=== PATIENT | male | born 1965 | race Caucasian/White ===

== ENCOUNTER 2019-02-04 18:32 | Emergency (ER) | payer OTHER ==
[~2019-02-04] VITALS: Ht 177.8 cm; Wt 85.7 kg
[2019-02-04 18:50] VITALS: BP 135/80
[2019-02-04] MEDS ORDERED: IV NS 0.9% 1,000 ML BAG IV ONE (20:00)
[2019-02-04 20:12] LABS: BASOPHILS # (AUTO) 0.1 /CMM (0.0-0.2); BASOPHILS % (AUTO) 0.8 % (0.0-2.0); EOSINOPHILS % (AUTO) 1.1 % (0.0-6.0); HEMATOCRIT 42 % (39-51); HEMOGLOBIN 14.5 g/dL (13.5-17.5); LYMPHOCYTES # (AUTO) 3.2 /CMM (0.8-4.8); LYMPHOCYTES % (AUTO) 39.1 % (20.0-44.0); MEAN CORPUSCULAR HGB CONC 35 g/dl (31.0-36.0); MEAN CORPUSCULAR VOLUME 101 fL (80-96); MONOCYTES # (AUTO) 0.7 /CMM (0.1-1.30); NEUTROPHILS # (AUTO) 4.2 /CMM (1.8-8.9); PLATELET COUNT (AUTO) 134 /CMM (150-450); RED BLOOD CELL COUNT(AUTO) 4.12 MIL/uL (4.5-6.0); WHITE BLOOD COUNT (AUTO) 8.3 K/uL (4.3-11.0)
[2019-02-04 20:18] LABS: CALCIUM, SERUM 8.3 mg/dL (8.5-10.1); CREATININE 1.1 mg/dL (0.6-1.3); POTASSIUM 3.3 mmol/L (3.5-5.1)
[2019-02-04 20:24] LABS: BILIRUBIN,DIRECT 0.3 mg/dL (0.0-0.2); BILIRUBIN,TOTAL 0.6 mg/dL (0.2-1.0); TOTAL PROTEIN, SERUM 6.6 g/dL (6.4-8.2)
[2019-02-04] MEDS ORDERED: LEVETIRACETAM (500MG) 500 MG in IV NS 0.9% 100 ML IV SCH (20:30)
--- NOTE | 2019-02-04 20:42 | NUR ---
SPOKE TO FRANK AT [facility]. HE INFORMED ME THAT PT HAS AN INTAKE BED READY FOR HIM. CALL REPORT TO [phone]. WILL SET UP TRANSFER
--- NOTE | 2019-02-04 20:45 | NUR ---
CALLED [facility] FOR BLS TRANSPORT. ETA 30 MIN TRIP# [phone]
--- NOTE | 2019-02-04 21:20 | NUR ---
IRMA, KANDI . SILVIA
--- NOTE | 2019-02-04 21:35 | NUR ---
REPORT GIVEN TO TASNEEM , RM 4026
--- NOTE | 2019-02-04 21:41 | NUR ---
REPORT GIVENTO truck unloader. PT WAS PICKED UP IN STABLE CONDITION. REPORT GIVEN TO truck unloader.
== END 2019-02-04 21:54 | disposition short-term general hospital (02) ==
LOC: ER 18:34
DX: S00.83XA Contusion of other part of head, initial encounter (principal); F10.229 Alcohol dependence with intoxication, unspecified; I60.9 Nontraumatic subarachnoid hemorrhage, unspecified; I10 Essential (primary) hypertension; R51 Headache; Y90.9 Presence of alcohol in blood, level not specified; W10.8XXA Fall (on) (from) other stairs and steps, initial encounter; Y93.89 Activity, other specified; Y92.002 Bathroom of unspecified non-institutional (private) residence as the place of occurrence of the external cause; Y99.8 Other external cause status
CPT/HCPCS: 36415; 70450; 71045; 80048; 80076; 83690; 85025; 85730; 86850; 96365; 99291; J1953; J7030 ×2

== ENCOUNTER 2019-02-17 13:23 | Emergency (ER) | payer OTHER ==
[~2019-02-17] VITALS: Ht 177.8 cm; Wt 81.6 kg
--- NOTE | 2019-02-17 13:26 | NUR ---
CHIKIS FOR ALTERED MENTAL STATUS, WAS SEEN BY NEIGHBORS AT HIS HOME [place], ADMITS TO ETOH THIS MORNING, ALSO C/O BACK PAIN. TO ER BED 11, HOOKED TO MONITOR, CHANGED TO GOWN, PROVIDED W WARM BLANKET, AWAITING MD SANTANA.
--- NOTE | 2019-02-17 13:35 | NUR ---
DR WREN AT BEDSIDE
[2019-02-17 13:53] LABS: BASOPHILS # (AUTO) 0.1 /CMM (0.0-0.2); EOSINOPHILS % (AUTO) 0.6 % (0.0-6.0); HEMATOCRIT 44 % (39-51); HEMOGLOBIN 15.4 g/dL (13.5-17.5); LYMPHOCYTES # (AUTO) 3.5 /CMM (0.8-4.8); LYMPHOCYTES % (AUTO) 34.6 % (20.0-44.0); MEAN CORPUSCULAR HGB CONC 35 g/dl (31.0-36.0); MEAN CORPUSCULAR VOLUME 99 fL (80-96); MONOCYTES # (AUTO) 0.8 /CMM (0.1-1.30); NEUTROPHILS # (AUTO) 5.6 /CMM (1.8-8.9); NEUTROPHILS % (AUTO) 55.8 % (43.0-81.0); PLATELET COUNT (AUTO) 195 /CMM (150-450); RED BLOOD CELL COUNT(AUTO) 4.42 MIL/uL (4.5-6.0)
[2019-02-17 14:00] LABS: CALCIUM, SERUM 8.9 mg/dL (8.5-10.1); CREATININE 1.4 mg/dL (0.6-1.3); POTASSIUM 3.9 mmol/L (3.5-5.1)
[2019-02-17] MEDS ORDERED: ACETAMINOPHEN ES 500 MG TABLET ONE (15:42)
[2019-02-17] MEDS ORDERED: ACETAMINOPHEN ES 500 MG TABLET PO ONE (16:00)
--- NOTE | 2019-02-17 16:08 | NUR ---
IV removed. Catheter intact and site benign. Pressure and 4x4 applied to site. No bleeding noted.Patient discharged to home with family in stable condition. Written and verbal after care instructions given. Patient verbalizes understanding of instruction. Pt able to ambulate in steady gait using cane.
[2019-02-17 16:34] VITALS: BP 132/82
== END 2019-02-17 16:08 | disposition home or self-care (01) ==
LOC: ER 13:34
DX: F10.20 Alcohol dependence, uncomplicated (principal); R47.81 Slurred speech; R40.4 Transient alteration of awareness; I10 Essential (primary) hypertension; Y90.6 Blood alcohol level of 120-199 mg/100 ml; Z60.2 Problems related to living alone; W10.8XXA Fall (on) (from) other stairs and steps, initial encounter; Y93.89 Activity, other specified; Y92.89 Other specified places as the place of occurrence of the external cause; Y99.8 Other external cause status
CPT/HCPCS: 36415; 70450-TC; 80048-TC; 85025-TC; 85730-TC; G0480

== ENCOUNTER 2021-08-05 09:36 | Emergency (ER) | payer OTHER ==
[~2021-08-05] VITALS: Ht 175.3 cm; Wt 78.5 kg
--- NOTE | 2021-08-05 10:01 | NUR ---
[id number] HOM[facility]ESS S[facility]IOR LIVING FOR BILAT UPPER/LOWER EXTREMITY INVOLUNTARY TWITCHING AT NIGHT X2DAYS, RAN OUT OF MEDICATIONS-NEURONTIN, AAOX3, BREATHING EVEN AND NON LABORED, AWAITING MD SANTANA
--- NOTE | 2021-08-05 10:06 | NUR ---
DR GASCA AT BEDSIDE FOR EVAL
--- NOTE | 2021-08-05 10:11 | NUR ---
Adelaida barry in EDM - 08/05/21 at 1121 by MAUREEN [id number] HOMELESS [facility] FOR BILAT UPPER/LOWER EXTREMITY INVOLUNTARY TWITCHING AT NIGHT X2DAYS, RAN OUT OF MEDICATIONS-NEURONTIN, AAOX3, BREATHING EVEN AND NON LABORED, AWAITING MD SANTANA
[2021-08-05] MEDS ORDERED: GABAPENTIN 300 MG CAPSULE ONE (10:16)
[2021-08-05] MEDS ORDERED: GABAPENTIN 100 MG CAPSULE PO ONE (10:30)
[2021-08-05 10:38] LABS: HEMOGLOBIN 15.6 g/dL (13.5-17.5); MEAN CORPUSCULAR HGB CONC 34 g/dl (31.0-36.0); PLATELET COUNT (AUTO) 119 K/uL (150-450)
[2021-08-05 10:40] LABS: CALCIUM, SERUM 8.7 mg/dL (8.5-10.1); CREATININE 1.3 mg/dL (0.6-1.3); POTASSIUM 4.2 mmol/L (3.5-5.1)
[2021-08-05 10:44] LABS: BASOPHILS # (AUTO) 0.1 K/uL (0.0-0.2); BASOPHILS % (AUTO) 1.1 % (0.0-2.0); HEMATOCRIT 46 % (39-51); LYMPHOCYTES # (AUTO) 1.9 K/uL (0.8-4.8); LYMPHOCYTES % (AUTO) 26.1 % (20.0-44.0); MEAN CORPUSCULAR VOLUME 93 fL (80-96); MONOCYTES # (AUTO) 0.5 K/uL (0.1-1.30); MONOCYTES % (AUTO) 6.9 % (2.0-12.0); NEUTROPHILS # (AUTO) 4.8 K/uL (1.8-8.9); NEUTROPHILS % (AUTO) 64.9 % (43.0-81.0); RED BLOOD CELL COUNT(AUTO) 4.93 MIL/uL (4.5-6.0); WHITE BLOOD COUNT (AUTO) 7.4 K/uL (4.3-11.0)
[2021-08-05] MEDS ORDERED: GABA300C PO (11:32)
--- NOTE | 2021-08-05 12:09 | NUR ---
Patient discharged to home in stable condition. Written and verbal after care instructions given. Patient verbalizes understanding of instruction.
[2021-08-05 12:10] VITALS: BP 134/72
== END 2021-08-05 12:11 | disposition home or self-care (01) ==
LOC: ER 09:44
DX: R25.8 Other abnormal involuntary movements (principal); E11.40 Type 2 diabetes mellitus with diabetic neuropathy, unspecified; E11.65 Type 2 diabetes mellitus with hyperglycemia; I10 Essential (primary) hypertension; Z79.891 Long term (current) use of opiate analgesic; Z60.2 Problems related to living alone
CPT/HCPCS: 36415; 80048-TC; 85025-TC

== ENCOUNTER 2021-09-23 13:06 | Emergency (ER) | payer OTHER ==
[~2021-09-23] VITALS: Ht 175.3 cm; Wt 78.5 kg
[~2021-09-23 13:06] MED LIST: GABA300C PO
--- NOTE | 2021-09-23 13:18 | NUR ---
BIB [facility] FOR WORSENING RIGHT FOOT PAIN,S/P R BIG TOE AMPUTATION 2 DAYS AGO. TO ER BED 1, HOOKED TO MONITOR, CHANGED TO HOSP GOWN, WARM BLANKET PROVIDED. PATIENT AAO x 4, RESPIRATIONS EVEN AND UNLABORED. AWAITING MD SANTANA
--- NOTE | 2021-09-23 14:23 | NUR ---
GUS SANTILLAN AT BEDSIDE
[2021-09-23] MEDS ORDERED: HYDROCODONE/APAP 5/325MG TABLET ONE (14:30)
[2021-09-23] MEDS ORDERED: HYDROCODONE/APAP 5/325MG TABLET PO ONE (14:30)
[2021-09-23] MEDS ORDERED: CEPH500C2 PO (14:41)
[2021-09-23 15:10] LABS: CREATININE 1.4 mg/dL (0.6-1.3); POTASSIUM 4.4 mmol/L (3.5-5.1)
[2021-09-23 15:16] LABS: BASOPHILS # (AUTO) 0.1 K/uL (0.0-0.2); BASOPHILS % (AUTO) 0.5 % (0.0-2.0); HEMATOCRIT 45 % (39-51); LYMPHOCYTES # (AUTO) 4.7 K/uL (0.8-4.8); MEAN CORPUSCULAR HGB CONC 33 g/dl (31.0-36.0); MEAN CORPUSCULAR VOLUME 90 fL (80-96); MONOCYTES # (AUTO) 0.7 K/uL (0.1-1.30); MONOCYTES % (AUTO) 5.6 % (2.0-12.0); NEUTROPHILS # (AUTO) 6.5 K/uL (1.8-8.9); NEUTROPHILS % (AUTO) 53.9 % (43.0-81.0); PLATELET COUNT (AUTO) 228 K/uL (150-450); RED BLOOD CELL COUNT(AUTO) 5.01 MIL/uL (4.5-6.0); WHITE BLOOD COUNT (AUTO) 12.1 K/uL (4.3-11.0)
--- NOTE | 2021-09-23 16:01 | NUR ---
Patient states he is homeless and requested a tap card.
--- NOTE | 2021-09-23 16:07 | NUR ---
Patient given written and verbal discharge instructions. Patient verbalizes understanding of instructions. Patient is ambulatory with steady gait. Refuses offer of prison placement. Patient given list of available shelters in surrounding area. Patient in proper clothing upon discharged, nameband removed. All belongings with the patient.
--- NOTE | 2021-09-23 16:08 | NUR ---
Tap card provided
[2021-09-23 16:11] VITALS: BP 129/66
== END 2021-09-23 16:11 | disposition home or self-care (01) ==
LOC: ER 13:08
DX: G89.18 Other acute postprocedural pain (principal); M79.671 Pain in right foot; I10 Essential (primary) hypertension; E11.40 Type 2 diabetes mellitus with diabetic neuropathy, unspecified; Z60.2 Problems related to living alone; Z79.899 Other long term (current) drug therapy
CPT/HCPCS: 36415; 80048; 85025; 85730; 99283; A6403

== ENCOUNTER 2021-11-11 20:56 | Emergency (ER) | payer OTHER ==
[~2021-11-11] VITALS: Ht 167.6 cm; Wt 65.8 kg
[~2021-11-11 20:56] MED LIST changes: +CEPH500C2 PO
--- NOTE | 2021-11-11 21:19 | NUR ---
CHIKIS FROM THE STREET. TO ER BED 15. AAOX3 BUT ADMITS TO DRINKING ALCOHOL. BROUGHT IN FEELING DEPRESSED AND RIGHT BIG TOE PAIN. DENIES ANY SUICIDAL NOR HOMICIDAL IDEATION. AWAITING MD FOR EVAL.
--- NOTE | 2021-11-11 21:40 | NUR ---
URINE COLLECTED AND SENT
--- NOTE | 2021-11-11 21:57 | NUR ---
COVID ANTIGEN SWAB COLLECTED
[2021-11-11 22:04] LABS: CARBON DIOXIDE 27 mmol/L (21-32); CHLORIDE 106 mmol/L (98-107); CREATININE 1.4 mg/dL (0.6-1.3); GLUCOSE 144 mg/dL (74-106); POTASSIUM 3.7 mmol/L (3.5-5.1); SODIUM SERUM 142 mmol/L (136-145); UREA NITROGEN, BLOOD 23 mg/dL (7-18)
[2021-11-11 22:10] LABS: ALANINE AMINOTRANSFERASE 38 U/L (12-78); ALBUMIN 3.5 g/dL (3.4-5.0); ALCOHOL, BLOOD 169 mg/dL (0-0); ALKALINE PHOSPHATASE 133 U/L (46-116); ASPARTATE AMINOTRANSFERASE 29 U/L (15-37); BASOPHILS % (AUTO) 0.4 % (0.0-2.0); BILIRUBIN,DIRECT 0.1 mg/dL (0.0-0.2); BILIRUBIN,TOTAL 0.2 mg/dL (0.2-1.0); EOSINOPHILS % (AUTO) 0.7 % (0.0-6.0); HEMATOCRIT 48 % (39-51); LYMPHOCYTES # (AUTO) 3.7 K/uL (0.8-4.8); MEAN CORPUSCULAR HGB CONC 33 g/dl (31.0-36.0); MEAN CORPUSCULAR VOLUME 92 fL (80-96); MONOCYTES # (AUTO) 0.5 K/uL (0.1-1.30); MONOCYTES % (AUTO) 5.2 % (2.0-12.0); NEUTROPHILS # (AUTO) 5.7 K/uL (1.8-8.9); NEUTROPHILS % (AUTO) 56.7 % (43.0-81.0); PLATELET COUNT (AUTO) 157 K/uL (150-450); RED BLOOD CELL COUNT(AUTO) 5.21 MIL/uL (4.5-6.0); TOTAL PROTEIN, SERUM 7.6 g/dL (6.4-8.2)
[2021-11-11 22:14] LABS: ACETAMINOPHEN 0 ug/ml (10-30)
[2021-11-11 22:15] LABS: MAGNESIUM 2.1 mg/dL (1.8-2.4)
[2021-11-11] MEDS ORDERED: IV NS 0.9% 500 ML BAG IV ONE (22:30)
[2021-11-11 23:09] LABS: BILIRUBIN,URINE NEGATIVE (NEGATIVE); COLOR,URINE YELLOW (YELLOW); LEUKOCYTE ESTERASE ,URINE NEGATIVE (NEGATIVE); NITRITE, URINE NEGATIVE (NEGATIVE); PROTEIN,URINE 100 mg/dl (NEGATIVE); UGLUCOSE NEGATIVE (NEGATIVE); UROBILINOGEN,URINE 0.2 EU/dL (0.2)
--- NOTE | 2021-11-11 23:09 | NUR ---
SPOKE WITH KADE DIEZ MANUFACTURING ENGINEER SUPERVISOR FOR CLINICAL INFORMATION. WILL CALL BACK FOR PEER TO PEER
--- NOTE | 2021-11-11 23:09 | NUR ---
Adelaida barry in [facility] - 11/12/21 at 0605 by SD SPOKE WITH KADE DIEZ WATCH AND CLOCK REPAIRER FOR CLINICAL INFORMATION. WILL CALL BACK FOR PEER TO PEER
--- NOTE | 2021-11-11 23:30 | NUR ---
Adelaida barry in [facility] - 11/12/21 at 0635 by MICHAEL PT IS ACCEPTED AT [facility] UNDER THE CARE OF DR. CARBAJAL. DEWAYNE TIE BINDER WILL CALL BACK FOR TRANSFER INFO. [phone]
--- NOTE | 2021-11-12 00:58 | NUR ---
PT RESTING COMFORTABLY IN BED, ASLEEP BUT EASILY AROUSABLE. WILL CONTINUE TO MONITOR
--- NOTE | 2021-11-12 03:02 | NUR ---
BIODIESEL PRODUCTION TECHNICIAN AT BEDSIDE
[2021-11-12] MEDS ORDERED: LORAZEPAM 1 MG TABLET ONE (03:28)
[2021-11-12] MEDS ORDERED: LORAZEPAM 1 MG TABLET PO ONE (03:30)
--- NOTE | 2021-11-12 04:44 | NUR ---
Called and spoek with Dr. Louise to inform her that the patient has been psychiatrically cleared
--- NOTE | 2021-11-12 04:56 | NUR ---
Market Basket Maker informed that the patient is accepted by Dr. Louise at the [facility]. tele bed. awaiting call back for transfer info
--- NOTE | 2021-11-12 06:35 | NUR ---
PT IS ACCEPTED AT [facility] UNDER THE CARE OF DR. CARBAJAL. SEBASTIAN FROM [facility] CALLED TO INFORM THAT HE IS STILL WORKING ON A ROOM.
--- NOTE | 2021-11-12 06:49 | NUR ---
[place] [address] [address] CARBAJAL REPORT [phone] WHEN ETA IS READY.
[2021-11-12 07:00] LABS: BACTERIA,URINE Few /HPF (None Seen); RBC,URINE 0-2 /HPF (0-2); SQUAMOUS EPITHELIAL CELL,UR 0-2 /HPF (None Seen); WBC,URINE 0-2 /HPF (0-3)
--- NOTE | 2021-11-12 07:17 | NUR ---
CALLED TO GIVE REPORT. PER MARTINA, CHARGE NURSE CALL BACK IN AN HOUR TO REPORT BECAUSE ROOM IS STILL NOT READY.
--- NOTE | 2021-11-12 07:23 | NUR ---
[facility] ETA 0900 TO [facility] ROOM 528.
--- NOTE | 2021-11-12 07:26 | NUR ---
PT WILL BE GOING TO 525
--- NOTE | 2021-11-12 08:36 | NUR ---
ATTEMPTED TO GIVE REPORT, NURSE IS WITH A PT, WILL ATTEMPT AGAIN.
--- NOTE | 2021-11-12 08:44 | NUR ---
REPORT GIVEN TO MANUEL CHOI OF [facility] FOR [facility].
--- NOTE | 2021-11-12 08:55 | NUR ---
Patient does not wish to proceed with medical care recommended by Dr. CARMICHAEL. Patient given information related to possible complications, up to and including , which could occur as a result of leaving the hospital at this time. Patient verbalizes understanding of risks involved due to leaving against medical advice. Patient has signed AMA form.
--- NOTE | 2021-11-12 08:57 | NUR ---
IV removed. Catheter intact and site benign. Pressure and 4x4 applied to site. No bleeding noted.
[2021-11-12 08:58] VITALS: BP 140/83
== END 2021-11-12 09:12 | disposition left against medical advice (07) ==
LOC: ER 21:05
DX: R06.09 Other forms of dyspnea (principal); R45.851 Suicidal ideations; Z59.00 Homelessness unspecified; I10 Essential (primary) hypertension; E11.40 Type 2 diabetes mellitus with diabetic neuropathy, unspecified; R45.86 Emotional lability; F10.129 Alcohol abuse with intoxication, unspecified; Y90.6 Blood alcohol level of 120-199 mg/100 ml; Z89.411 Acquired absence of right great toe; F32.A Depression, unspecified; F12.90 Cannabis use, unspecified, uncomplicated; E11.65 Type 2 diabetes mellitus with hyperglycemia; E11.22 Type 2 diabetes mellitus with diabetic chronic kidney disease; N18.9 Chronic kidney disease, unspecified; F17.290 Nicotine dependence, other tobacco product, uncomplicated; Z20.822 Contact with and (suspected) exposure to COVID-19
CPT/HCPCS: 36415; 71045; 80048; 80076; 80143; 80307; 80320; 81001; 82962; 83690; 83735; 83880; 84484; 85025; 87426; 93005; 99285; 99406; C9803; J7040; G0480

== ENCOUNTER 2022-04-29 23:58 | Emergency (ER) | payer OTHER ==
[~2022-04-29] VITALS: Ht 175.3 cm; Wt 74.8 kg
--- NOTE | 2022-04-30 00:05 | NUR ---
BIBRA39 C/O N/V, AND HIGH BLOOD SUGAR. PHYSICS INSTRUCTOR EMS BS 580. PATIENT IS AAOX4. WITH PERIPHERAL LINE ON LEFT AC G18. PT IS COUGHING +WHEEZING. PATIENT IS PLACED COMFORTABLY IN BED. ATTACHED TO MONITOR. VITALS CHECKED.
[2022-04-30 00:10] VITALS: BP 126/76
--- NOTE | 2022-04-30 00:13 | NUR ---
RT CALLED FOR ABG
[2022-04-30] MEDS ORDERED: ONDANSETRON HCL/PF 4 MG/2 ML VIAL IV ONE (00:30)
[2022-04-30] MEDS ORDERED: IV NS 0.9% 1,000 ML IV ONE ×2 (00:30)
--- NOTE | 2022-04-30 00:35 | NUR ---
HOSPITALITY TEAM MEMBER AT PT'S BEDSIDE
--- NOTE | 2022-04-30 00:44 | NUR ---
Addendum: Intravenous end times: 1. IVF NS 1 liter WO: start time: 0044 am end time: 0144 am PIV # 18 LAC Port # 1 2. IVF NS 1 liter WO: start time: 0044 am end time: 0144 am PIV # 18 LAC Port # 2
[2022-04-30 00:45] LABS: ABG BASE EXCESS -4.6 mmol/L; ABG PCO2 43.6 mmHg (35.0-45.0); ABG PH 7.312 (7.350-7.450); ABG PO2 60.3 mmHg (75.0-100.0); COHb 7.9 % (0.5-1.5); MetHb 0.4 % (0.0-1.5); O2Hb 82.7 % (94.0-97.0); SITE, ABG Right Radial; VENT MODE, BG room air
[2022-04-30] MEDS ORDERED: ONDANSETRON HCL/PF 4 MG/2 ML VIAL ONE (00:45)
--- NOTE | 2022-04-30 01:05 | NUR ---
PATIENT WITH PRN O2 INH AT 2LPM VIA NC
--- NOTE | 2022-04-30 01:05 | NUR ---
URINE SPECIMEN SENT TO LAB
--- NOTE | 2022-04-30 01:05 | NUR ---
IV CANNULA G20 INSERTED ON RIGHT FA G20. BLOOD DRAWN AND SENT TO LAB
[2022-04-30 01:39] LABS: BASOPHILS # (AUTO) 0.1 K/uL (0.0-0.2); BASOPHILS % (AUTO) 0.6 % (0.0-2.0); EOSINOPHILS % (AUTO) 0.5 % (0.0-6.0); HEMATOCRIT 51 % (39-51); HEMOGLOBIN 17.4 g/dL (13.5-17.5); LYMPHOCYTES # (AUTO) 2.7 K/uL (0.8-4.8); LYMPHOCYTES % (AUTO) 28.3 % (20.0-44.0); MEAN CORPUSCULAR HGB CONC 34 g/dl (31.0-36.0); MEAN CORPUSCULAR VOLUME 93 fL (80-96); MONOCYTES # (AUTO) 0.6 K/uL (0.1-1.30); MONOCYTES % (AUTO) 5.9 % (2.0-12.0); NEUTROPHILS # (AUTO) 6.3 K/uL (1.8-8.9); NEUTROPHILS % (AUTO) 64.7 % (43.0-81.0); PLATELET COUNT (AUTO) 162 K/uL (150-450); RED BLOOD CELL COUNT(AUTO) 5.52 MIL/uL (4.5-6.0); WHITE BLOOD COUNT (AUTO) 9.7 K/uL (4.3-11.0)
[2022-04-30 01:47] LABS: BILIRUBIN,URINE NEGATIVE (NEGATIVE); COLOR,URINE YELLOW (YELLOW); LEUKOCYTE ESTERASE ,URINE NEGATIVE (NEGATIVE); NITRITE, URINE NEGATIVE (NEGATIVE); PROTEIN,URINE >=300 mg/dl (NEGATIVE); UGLUCOSE >=1000 mg/dL (NEGATIVE); UROBILINOGEN,URINE 0.2 EU/dL (0.2)
[2022-04-30 01:55] LABS: BACTERIA,URINE Rare /HPF (None Seen); CALCIUM, SERUM 8.9 mg/dL (8.5-10.1); CARBON DIOXIDE 27 mmol/L (21-32); CHLORIDE 98 mmol/L (98-107); CREATININE 1.6 mg/dL (0.6-1.3); POTASSIUM 4.4 mmol/L (3.5-5.1); RBC,URINE 0-2 /HPF (0-2); SODIUM SERUM 135 mmol/L (136-145); SQUAMOUS EPITHELIAL CELL,UR Moderate /HPF (None Seen); UREA NITROGEN, BLOOD 21 mg/dL (7-18)
[2022-04-30 02:01] LABS: GLUCOSE 624 mg/dL (74-106)
--- NOTE | 2022-04-30 02:01 | NUR ---
CRITICAL LAB: GLUCOSE 624; DR. SONIDO ODOM AWARE.
[2022-04-30] MEDS ORDERED: INSULIN REGULAR, HUMAN 100 UNIT/ML 10 ML VIAL ONE (02:08)
[2022-04-30] MEDS ORDERED: INSULIN REGULAR, HUMAN 100 UNIT/ML 10 ML VIAL IV ONE (02:30)
[2022-04-30] MEDS ORDERED: INSULIN REGULAR, HUMAN 100 UNIT/ML 10 ML VIAL SQ ONE (02:30)
--- NOTE | 2022-04-30 03:13 | NUR ---
ACCUCHECK DONE, LATEST BS 370. DR HEAD MADE AWARE
--- NOTE | 2022-04-30 03:45 | NUR ---
PT FOR DISCHARGE. PT LIVES IN [facility]OM[facility] [place], REQUESTING IF HE CAN STAY FOR AWHILE UNTIL SUNRISE. CN MADE AWARE AND ALLOWED PT TO SLEEP.
== END 2022-04-30 | disposition home or self-care (01) ==
LOC: ER 04-30 00:03
DX: E11.65 Type 2 diabetes mellitus with hyperglycemia (principal); I10 Essential (primary) hypertension; E11.9 Type 2 diabetes mellitus without complications; Z60.2 Problems related to living alone; Z79.899 Other long term (current) drug therapy
CPT/HCPCS: 99284; 96374; 71045; 96361; 96375; 82803; 85025; 80048; 82010; 81001; 36415; 82962; 36600 ×2; 96372; J1815; J2405; J7030

== ENCOUNTER 2022-08-11 10:38 | Emergency (ER) | payer OTHER ==
[~2022-08-11] VITALS: Ht 175.3 cm; Wt 81.6 kg
--- NOTE | 2022-08-11 10:49 | NUR ---
[facility] to ER, C/O acute abdominal pain - started at 0830 am today. The patient also c/o left foot pain - open wound, POA
--- NOTE | 2022-08-11 10:52 | NUR ---
DR TAYLOR AT BEDSIDE FOR EVAL
[2022-08-11] MEDS ORDERED: ONDANSETRON HCL/PF 4 MG/2 ML VIAL ONE (11:04)
[2022-08-11] MEDS ORDERED: KETOROLAC TROMETHAMINE INJ 30 MG/ML VIAL ONE (11:04)
[2022-08-11] MEDS ORDERED: IV NS 0.9% 1,000 ML BAG IV ONE (11:30)
[2022-08-11] MEDS ORDERED: KETOROLAC TROMETHAMINE INJ 30 MG/ML VIAL IV ONE (11:30)
[2022-08-11] MEDS ORDERED: ONDANSETRON HCL/PF 4 MG/2 ML VIAL IVP ONE (11:30)
[2022-08-11 11:45] LABS: BASOPHILS # (AUTO) 0.1 K/uL (0.0-0.2); BASOPHILS % (AUTO) 0.6 % (0.0-2.0); EOSINOPHILS % (AUTO) 0.6 % (0.0-6.0); HEMATOCRIT 49 % (39-51); HEMOGLOBIN 16.4 g/dL (13.5-17.5); LYMPHOCYTES # (AUTO) 2.9 K/uL (0.8-4.8); LYMPHOCYTES % (AUTO) 22.8 % (20.0-44.0); MEAN CORPUSCULAR HGB CONC 34 g/dl (31.0-36.0); MEAN CORPUSCULAR VOLUME 90 fL (80-96); MONOCYTES % (AUTO) 8.1 % (2.0-12.0); NEUTROPHILS # (AUTO) 8.7 K/uL (1.8-8.9); NEUTROPHILS % (AUTO) 67.9 % (43.0-81.0); PLATELET COUNT (AUTO) 251 K/uL (150-450); RED BLOOD CELL COUNT(AUTO) 5.39 MIL/uL (4.5-6.0); WHITE BLOOD COUNT (AUTO) 12.8 K/uL (4.3-11.0)
[2022-08-11 11:57] LABS: CALCIUM, SERUM 9.1 mg/dL (8.5-10.1); POTASSIUM 3.9 mmol/L (3.5-5.1)
[2022-08-11 12:02] LABS: ALBUMIN 3.3 g/dL (3.4-5.0); BILIRUBIN,DIRECT 0.2 mg/dL (0.0-0.2); BILIRUBIN,TOTAL 0.5 mg/dL (0.2-1.0); TOTAL PROTEIN, SERUM 7.8 g/dL (6.4-8.2)
[2022-08-11] MEDS ORDERED: IV NS 0.9% 250 ML IV ONE (12:42)
[2022-08-11] MEDS ORDERED: IOHEXOL-300 100 ML VIAL IV ONE (12:42)
[2022-08-11] MEDS ORDERED: CT SWABBABLE VALVE TRANS SET 1 EA INFUS.SET MC ONE (12:42)
[2022-08-11] MEDS ORDERED: FAMO-131 PO (14:37)
[2022-08-11] MEDS ORDERED: KETO10TA2 PO (14:37)
[2022-08-11] MEDS ORDERED: ONDA4TAB11 PO (14:37)
[2022-08-11] MEDS ORDERED: PANTOPRAZOLE 40 MG VIAL ONE (14:41)
[2022-08-11] MEDS ORDERED: MAG HYDROX/AL HYDROX/SIMETH 30 ML UDC ONE (14:42)
[2022-08-11] MEDS ORDERED: LIDOCAINE VISCOUS 2% UD 15 ML UDC ONE (14:42)
--- NOTE | 2022-08-11 14:50 | NUR ---
RETAIL CLERK AT BEDSIDE W/ PT
--- NOTE | 2022-08-11 14:56 | NUR ---
PT GOING TO: [address] [place] [address]
[2022-08-11] MEDS ORDERED: PANTOPRAZOLE 40 MG VIAL IV ONE (15:00)
[2022-08-11] MEDS ORDERED: MAG HYDROX/AL HYDROX/SIMETH 30 ML UDC PO ONE (15:00)
[2022-08-11] MEDS ORDERED: LIDOCAINE VISCOUS 2% UD 15 ML UDC MM ONE (15:00)
--- NOTE | 2022-08-11 15:07 | NUR ---
SS Consult requested for homelessness. The pt. is a 57-year-old male pt. who came to the ED via RA due to "abdominal and foot pain" per EMR. Upon SS consult, the pt. is Alert & Oriented x 4 and makes good eye contact. The pt. appears unkempt. Pt. has euthymic mood & affect. Pt.'s speech is soft and clear. Pt. remained calm & cooperative throughout interview. Pt. denies SI/HI and denies hallucinations. SW explored pt.'s living situation. Patient states he is currently experiencing homelessness and resides at [facility][[address] [facility] [address]] fir the past year. SW explored pt.'s drug & ETOH use. Pt. denies drug and ETOH use. Per pt. he is wheelchair bound and independent with all his ADL's. Pt. states he receives food stamps & receives general relief. Plan: SW provided pt. with the following homeless resources and pt. accepted them. Pt. signed homeless waiver and it was placed in the pt.'s chart. Per pt. his friend, Bre who also resides at the [facility] will be able to bring him his wheelchair and provide transport back to [facility][[address] [facility] [address]].ASHLEIGH discussed with . Winter Long Term list : [facility]; AB Adult WSP site; YANIRA Adult WSP site; and WFD Adult WSP site; instruction to call 211 for availability. Year-round shelters: [place] [address] [place], [place] [id number] ; [facility] [place] [address] [place] [address]; [facility] [address] [facility]. [facility] [address] Hygiene: [facility]: [address] [address] ; [facility] [address] [facility] ; [facility] [address] [place] . Food Resources: [place] [facility] at [facility]- [address]. [place]; Meet Each Need with Dignity (MEND) [address] [facility] Josey; [facility] [address] [facility]; [facility] [address] [facility]. Mental Health resources provided: [facility] [address] [place], [place] [address] ; [facility] [address] [facility] [address], [place], [place] [id number] ; [facility] [address] [place] [address] [place], [place] [phone] ; [facility] [address] [place], [place] [address] Healthcare Clinics: [facility] [address] [facility], [address] [place]. [place] ; [facility] [address] [facility] [address] [place] [address]; [facility] [address] [facility]. [place] [phone] Counseling--Outpatient [facility] [address] [facility], [place] [address] (Specializes in in-depth psychotherapy for emotional distress: anxiety, depression, interpersonal conflicts, life transitions, childhood abuse) [facility] [address] [place] [address] (Assist with solving problem marital difficulties, separation & divorce, aging parents, & grief, chronic & terminal illness) [facility] [address] [place] [address] (Deal with loss & grief, anxiety, marital difficulties) Homebound/Mental Health Services [address] [facility], [address] [place], [place] [address] (Provide in-home mental services to people who are incapable of leaving their homes) [facility] Elder[facility] Senior Service/Resource Center [address] [facility] [place] [address] [facility] [address] [place] [address] PSYCHIATRIC OUTPATIENT SERVICES [facility] Partial Hospitalization and Intensive Outpatient Program (Managed Care and [place] Only)[address] [facility] [phone] [facility] Partial Hospitalization and Outpatient [address] [place], [place] [phone] [facility] [place] Ior85942 [facility]. [address] [place], [place] [phone] [facility] Partial Hospitalization and Outpatient Dkssbis52846 [facility] Center[facility]ani, [phone] Substance Abuse resources provided included: [facility] Substance Abuse Self-Helpline ([facility]) ; CRI -HELP [address] [facility]. [place] [address] ; [facility] [address] [facility] [address] ; [facility] Rehabilitation Program [address] [facility] [address] ; [facility] [address] [facility] [phone] ; [facility] [address] [facility] [address] ; [facility] [address] [facility] [address] ; [facility] Substance Abuse Helpline([facility])-[facility] ; [facility] ; [facility] [place]; [facility] [place]; C[facility] [place]; [facility] Arthur lani; [facility] [place]; [facility] [place]; [facility]. [facility] Lanie; Alcoholics Anonymous -SFV; Juan ; Marijuana Anonymous -SFV; Narcotics Anonymous www.na.org;
[2022-08-11 17:09] VITALS: BP 128/79
== END 2022-08-11 17:10 | disposition home or self-care (01) ==
LOC: ER 10:55
DX: K80.50 Calculus of bile duct without cholangitis or cholecystitis without obstruction (principal); R10.13 Epigastric pain; I10 Essential (primary) hypertension; E11.9 Type 2 diabetes mellitus without complications; Z98.890 Other specified postprocedural states; Z79.899 Other long term (current) drug therapy
CPT/HCPCS: 99285; 74177; 96374; 76705; 96375; 96361; 85025; 80048; 83690; 80076; 36415; 85730; 82962; J1885; J2405; J7030; J7050; C9113; Q9967

== ENCOUNTER 2024-12-24 12:02 | Inpatient (IN) | payer MEDICAID ==
[~2024-12-24] VITALS: Ht 175.3 cm; Wt 67.4 kg
[~2024-12-24 12:02] MED LIST changes: +FAMO-131 PO; +KETO10TA2 PO; +ONDA4TAB11 PO
[2024-12-24 12:39] LABS: PLATELET COUNT (AUTO) 315 K/uL (150-450); RED BLOOD CELL COUNT(AUTO) 4.58 MIL/uL (4.5-6.0); RED CELL DISTRIBUTION WIDTH 14.6 % (11.5-15.0); WHITE BLOOD COUNT (AUTO) 16.7 K/uL (4.3-11.0)
[2024-12-24 12:48] LABS: CALCIUM, SERUM 9.1 mg/dL (8.5-10.1); CREATININE 1.8 mg/dL (0.6-1.3); SODIUM SERUM 136.0 mmol/L (136-145); UREA NITROGEN, BLOOD 42.0 mg/dL (7-18)
[2024-12-24 13:03] LABS: APPEARANCE,URINE CLOUDY (CLEAR); BLOOD, URINE Moderate Ery/uL (NEGATIVE); LEUKOCYTE ESTERASE ,URINE Large (NEGATIVE); UGLUCOSE Negative (NEGATIVE)
[2024-12-24 13:14] LABS: NITRITE, URINE NEGATIVE (NEGATIVE)
[2024-12-24 13:21] LABS: ADD URINE CULTURE YES; SQUAMOUS EPITHELIAL CELL,UR Moderate /HPF (None Seen)
[2024-12-24] MEDS ORDERED: KETOROLAC TROMETHAMINE 15 MG/ML VIAL ONE (13:45)
[2024-12-24] MEDS: CEFTRIAXONE 1 G in IV D5W 50 ML IV ONE (13:57)
[2024-12-24] MEDS: IV NS 0.9% 1,000 ML BAG IV ONE (13:57)
[2024-12-24] MEDS: KETOROLAC TROMETHAMINE 15 MG/ML VIAL IV ONE (13:58)
[2024-12-24] MEDS ORDERED: INSU100V39 SQ ×2 (15:05)
[2024-12-24] MEDS ORDERED: ATOR80TA PO (15:05)
[2024-12-24] MEDS ORDERED: BISA10SU11 RC (15:05)
[2024-12-24] MEDS ORDERED: CLOP75TA15 PO (15:05)
[2024-12-24] MEDS ORDERED: SIME80TA15 PO (15:05)
[2024-12-24] MEDS ORDERED: ASCO500T10 PO (15:05)
[2024-12-24] MEDS ORDERED: NA P133E RC (15:05)
[2024-12-24] MEDS ORDERED: PANT40TA49 PO (15:05)
[2024-12-24] MEDS ORDERED: ACET325T53 PO (15:05)
[2024-12-24] MEDS ORDERED: MULT-754 PO (15:05)
[2024-12-24] MEDS ORDERED: INSU100I40 SQ (15:05)
[2024-12-24] MEDS ORDERED: INSU100V7 SQ (15:05)
[2024-12-24] MEDS ORDERED: MAGN400O6 PO (15:05)
[2024-12-24] MEDS ORDERED: ONDA-97 PO (15:05)
[2024-12-24] MEDS ORDERED: ASPI-1169 PO (15:05)
[2024-12-24] MEDS ORDERED: TAMS-12 PO (15:05)
[2024-12-24] MEDS ORDERED: NICO-761 TD (15:05)
[2024-12-24] MEDS ORDERED: ACET-73 PO (15:05)
[2024-12-24] MEDS ORDERED: MAG HYDROX/AL HYDROX/SIMETH 30 ML UDC PO PRN (17:00)
[2024-12-24] MEDS ORDERED: ONDANSETRON HCL/PF 4 MG/2 ML VIAL IVP PRN (17:00)
[2024-12-24] MEDS ORDERED: MAGNESIUM HYDROXIDE 30 ML UDC PO PRN ×2 (17:00)
[2024-12-24] MEDS ORDERED: BISACODYL SUPP (10 MG) 10 MG/SUPP.RECT SUPP.RECT RC PRN (17:00)
[2024-12-24] MEDS ORDERED: DEXTROSE 50%-WATER 50 ML DISP.SYRIN IV PRN (17:00)
[2024-12-24] MEDS ORDERED: ACETAMINOPHEN 325 MG TABLET PO PRN (17:00)
[2024-12-24] MEDS: SIMETHICONE 80 MG TAB.CHEW PO SCH (17:31)
[2024-12-24] MEDS: BLOOD SUGAR DIAGNOSTIC 1 EACH STRIP VI SCH (17:32)
[2024-12-24 20:00] VITALS: BP 151/84; TEMP 98; O2SAT 98
[2024-12-24] MEDS: TAMSULOSIN 0.4 MG CAP.SR.24H PO SCH (21:03)
[2024-12-24] MEDS: INSULIN REGULAR, HUMAN 100 UNIT/ML 3 ML VIAL SQ PRN (21:15)
[2024-12-25 03:01] VITALS: BP 151/84; TEMP 98.1; O2SAT 98
[2024-12-25 07:48] LABS: PLATELET COUNT (AUTO) 281 K/uL (150-450); RED BLOOD CELL COUNT(AUTO) 4.47 MIL/uL (4.5-6.0); RED CELL DISTRIBUTION WIDTH 14.5 % (11.5-15.0); WHITE BLOOD COUNT (AUTO) 14.5 K/uL (4.3-11.0)
[2024-12-25 08:00] VITALS: BP 146/86; TEMP 97.7; O2SAT 98
[2024-12-25] MEDS: PANTOPRAZOLE 40 MG TABLET.DR PO SCH (08:01)
[2024-12-25] MEDS: CLOTRIMAZOLE 1% 15 GM TUBE TP SCH (09:00)
[2024-12-25 09:35] LABS: CALCIUM, SERUM 8.7 mg/dL (8.5-10.1); CREATININE 1.9 mg/dL (0.6-1.3); PHOSPHORUS 3.8 mg/dL (2.5-4.9); SODIUM SERUM 136.0 mmol/L (136-145); UREA NITROGEN, BLOOD 44.0 mg/dL (7-18)
[2024-12-25] MEDS: Z GUARD REMEDY 4 OZ OINT TP PRN (09:53)
[2024-12-25] MEDS: NICOTINE PATCH (14MG) 14 MG PATCH.TD24 TD SCH (09:55)
[2024-12-25] MEDS: ASPIRIN 81 MG TAB.CHEW PO SCH (09:56)
[2024-12-25] MEDS: CLOPIDOGREL BISULFATE 75 MG TABLET PO SCH (09:56)
[2024-12-25] MEDS: CEFTRIAXONE 1 G in IV D5W 50 ML IV SCH (14:44)
[2024-12-25 16:00] VITALS: BP 134/82; TEMP 98.1; O2SAT 98
[2024-12-25 18:49] LABS: CREATININE, URINE 80.9 MG/DL (30.0-125.0); URINE SODIUM, RANDOM 68.0 mmol/l (40-220); URINE TOTAL PROTEIN 559.2 mg/dL (0-11.9)
[2024-12-26] MEDS: *INSULIN REGULAR(HUMULIN R)HUM 100 UNIT/ML VIAL SQ PRN (00:08)
[2024-12-26 07:00] VITALS: BP 158/83; TEMP 97.7; O2SAT 98
[2024-12-26 12:18] LABS: PLATELET COUNT (AUTO) 269 K/uL (150-450); RED BLOOD CELL COUNT(AUTO) 4.40 MIL/uL (4.5-6.0); RED CELL DISTRIBUTION WIDTH 14.6 % (11.5-15.0); WHITE BLOOD COUNT (AUTO) 13.1 K/uL (4.3-11.0)
[2024-12-26 12:29] LABS: ASPARTATE AMINOTRANSFERASE 27.0 U/L (15-37); CALCIUM, SERUM 8.7 mg/dL (8.5-10.1); CREATININE 1.9 mg/dL (0.6-1.3); PHOSPHORUS 3.5 mg/dL (2.5-4.9); SODIUM SERUM 139.0 mmol/L (136-145); TOTAL PROTEIN, SERUM 7.7 g/dL (6.4-8.2); UREA NITROGEN, BLOOD 42.0 mg/dL (7-18)
[2024-12-26 12:30] LABS: CREATINE KINASE, TOTAL 17.0 U/L (39-308)
[2024-12-26 16:00] VITALS: BP 148/83; TEMP 97.9; O2SAT 98
[2024-12-26 20:00] VITALS: BP 159/93; TEMP 98.1; O2SAT 96
[2024-12-26] MEDS: HYDROCODONE/APAP 5/325MG TABLET PO PRN (20:23)
[2024-12-27 07:37] LABS: PLATELET COUNT (AUTO) 294 K/uL (150-450); RED BLOOD CELL COUNT(AUTO) 4.56 MIL/uL (4.5-6.0); RED CELL DISTRIBUTION WIDTH 14.4 % (11.5-15.0); WHITE BLOOD COUNT (AUTO) 16.0 K/uL (4.3-11.0)
[2024-12-27 08:14] LABS: CALCIUM, SERUM 9.3 mg/dL (8.5-10.1); CREATININE 1.7 mg/dL (0.6-1.3); SODIUM SERUM 138.0 mmol/L (136-145); UREA NITROGEN, BLOOD 37.0 mg/dL (7-18)
[2024-12-27] MEDS: NICOTINE PATCH (21MG) 21 MG PATCH.TD24 TD SCH (08:18)
[2024-12-27] MEDS ORDERED: KETOROLAC TROMETHAMINE 15 MG/ML VIAL IV SCH (11:00)
[2024-12-27 11:09] LABS: PTH, INTACT 19 pg/mL (15-65)
[2024-12-27] MEDS: MEROPENEM 500 MG in IV NS 0.9% 50 ML IV SCH (11:35)
[2024-12-27 16:00] VITALS: BP 130/80; TEMP 97.9; O2SAT 98
[2024-12-27 20:00] VITALS: BP 150/75; TEMP 98.1; O2SAT 99
[2024-12-28 06:41] LABS: PLATELET COUNT (AUTO) 287 K/uL (150-450); RED BLOOD CELL COUNT(AUTO) 4.68 MIL/uL (4.5-6.0); RED CELL DISTRIBUTION WIDTH 14.7 % (11.5-15.0); WHITE BLOOD COUNT (AUTO) 16.8 K/uL (4.3-11.0)
[2024-12-28 07:00] VITALS: BP 145/85; TEMP 98.4; O2SAT 97
[2024-12-28 07:16] LABS: CALCIUM, SERUM 9.2 mg/dL (8.5-10.1); CREATININE 1.6 mg/dL (0.6-1.3); SODIUM SERUM 141.0 mmol/L (136-145); UREA NITROGEN, BLOOD 35.0 mg/dL (7-18)
[2024-12-28] MEDS ORDERED: DIATR MEGLU/DIATRIZOATE SODIUM 30 ML BOTTLE (GASTROGRAPHIN) ONE (09:58)
[2024-12-28] MEDS ORDERED: IOHEXOL-300 100 ML VIAL IV ONE (13:14)
[2024-12-28] MEDS ORDERED: IV NS 0.9% 250 ML IV ONE (13:14)
[2024-12-28 16:00] VITALS: BP 161/94; TEMP 98.4; O2SAT 98
[2024-12-28 20:00] VITALS: BP 143/80; TEMP 98.2; O2SAT 98
[2024-12-29 07:01] LABS: PLATELET COUNT (AUTO) 295 K/uL (150-450); RED BLOOD CELL COUNT(AUTO) 4.79 MIL/uL (4.5-6.0); RED CELL DISTRIBUTION WIDTH 14.7 % (11.5-15.0); WHITE BLOOD COUNT (AUTO) 15.3 K/uL (4.3-11.0)
[2024-12-29 07:26] LABS: CALCIUM, SERUM 9.2 mg/dL (8.5-10.1); CREATININE 1.6 mg/dL (0.6-1.3); SODIUM SERUM 139.0 mmol/L (136-145); UREA NITROGEN, BLOOD 37.0 mg/dL (7-18)
[2024-12-29 08:00] VITALS: BP 154/83; TEMP 97.5; O2SAT 100
[2024-12-29] MEDS: KETOROLAC TROMETHAMINE 15 MG/ML VIAL IV SCH (11:53)
[2024-12-29 16:16] VITALS: BP 132/82; TEMP 98; O2SAT 99
[2024-12-29 20:00] VITALS: BP 116/80; TEMP 98.1; O2SAT 99
[2024-12-30 07:19] LABS: PLATELET COUNT (AUTO) 281 K/uL (150-450); RED BLOOD CELL COUNT(AUTO) 4.49 MIL/uL (4.5-6.0); RED CELL DISTRIBUTION WIDTH 15.0 % (11.5-15.0); WHITE BLOOD COUNT (AUTO) 12.5 K/uL (4.3-11.0)
[2024-12-30 07:25] LABS: CALCIUM, SERUM 9.3 mg/dL (8.5-10.1); CREATININE 1.9 mg/dL (0.6-1.3); SODIUM SERUM 141.0 mmol/L (136-145); UREA NITROGEN, BLOOD 46.0 mg/dL (7-18)
[2024-12-30 07:30] VITALS: BP 150/89; TEMP 97.7; O2SAT 99
[2024-12-30 16:10] LABS: *SPE A/G RATIO 0.5 (0.7-1.7); *SPE ALBUMIN 2.2 g/dL (2.9-4.4); *SPE ALPHA-1-GLOBULIN 0.4 g/dL (0.0-0.4); *SPE ALPHA-2-GLOBULIN 1.3 g/dL (0.4-1.0); *SPE BETA GLOBULIN 1.5 g/dL (0.7-1.3); *SPE GLOBULIN, TOTAL 4.7 g/dL (2.2-3.9); *SPE M-SPIKE Not Observed g/dL (Not Observed); *SPE PROTEIN TOTAL 6.9 g/dL (6.0-8.5); *SPEGAMMA GLOBULIN 1.5 g/dL (0.4-1.8)
[2024-12-30 20:00] VITALS: BP 155/86; TEMP 97.3; TEMP 97.5; O2SAT 99
[2024-12-31 06:44] LABS: PLATELET COUNT (AUTO) 289 K/uL (150-450); RED BLOOD CELL COUNT(AUTO) 4.59 MIL/uL (4.5-6.0); RED CELL DISTRIBUTION WIDTH 14.8 % (11.5-15.0); WHITE BLOOD COUNT (AUTO) 14.6 K/uL (4.3-11.0)
[2024-12-31 07:09] LABS: CALCIUM, SERUM 9.2 mg/dL (8.5-10.1); CREATININE 1.8 mg/dL (0.6-1.3); SODIUM SERUM 138.0 mmol/L (136-145); UREA NITROGEN, BLOOD 50.0 mg/dL (7-18)
[2024-12-31 07:30] VITALS: BP 163/89; TEMP 97.5; O2SAT 98
[2024-12-31] MEDS: PEG 3350/NA SULF,BICARB,CL/KCL 4,000 ML BOTTLE PO ONE (14:16)
[2024-12-31 16:19] VITALS: BP 139/81; TEMP 97.7; O2SAT 98
[2024-12-31 20:00] VITALS: BP 127/71; TEMP 98.1; O2SAT 96
[2025-01-01 07:47] LABS: INR 1.05 (0.91-1.10)
[2025-01-01 07:51] LABS: PLATELET COUNT (AUTO) 330 K/uL (150-450); RED BLOOD CELL COUNT(AUTO) 4.94 MIL/uL (4.5-6.0); RED CELL DISTRIBUTION WIDTH 14.6 % (11.5-15.0); WHITE BLOOD COUNT (AUTO) 15.3 K/uL (4.3-11.0)
[2025-01-01 08:00] VITALS: BP 169/93; TEMP 97.5; O2SAT 98
[2025-01-01 08:17] LABS: ASPARTATE AMINOTRANSFERASE 44.0 U/L (15-37); CALCIUM, SERUM 9.1 mg/dL (8.5-10.1); CREATININE 1.6 mg/dL (0.6-1.3); PHOSPHORUS 3.0 mg/dL (2.5-4.9); SODIUM SERUM 139.0 mmol/L (136-145); TOTAL PROTEIN, SERUM 7.9 g/dL (6.4-8.2); UREA NITROGEN, BLOOD 42.0 mg/dL (7-18)
[2025-01-01 09:00] VITALS: BP 166/97
[2025-01-01 10:15] VITALS: BP 151/89
[2025-01-01 16:00] VITALS: BP 154/83; TEMP 97.9; O2SAT 98
[2025-01-01 20:00] VITALS: BP 146/93; TEMP 98.1; O2SAT 100
[2025-01-02 07:21] LABS: PLATELET COUNT (AUTO) 320 K/uL (150-450); RED BLOOD CELL COUNT(AUTO) 5.00 MIL/uL (4.5-6.0); RED CELL DISTRIBUTION WIDTH 15.0 % (11.5-15.0); WHITE BLOOD COUNT (AUTO) 15.0 K/uL (4.3-11.0)
[2025-01-02 07:46] LABS: ASPARTATE AMINOTRANSFERASE 34.0 U/L (15-37); CALCIUM, SERUM 9.4 mg/dL (8.5-10.1); CREATININE 1.6 mg/dL (0.6-1.3); PHOSPHORUS 3.3 mg/dL (2.5-4.9); SODIUM SERUM 142.0 mmol/L (136-145); TOTAL PROTEIN, SERUM 8.0 g/dL (6.4-8.2); UREA NITROGEN, BLOOD 34.0 mg/dL (7-18)
[2025-01-02 08:00] VITALS: BP 150/86; TEMP 97.7; O2SAT 100
[2025-01-02 14:00] VITALS: BP 145/85; TEMP 97.8; O2SAT 96
[2025-01-02 20:00] VITALS: BP 148/79; TEMP 97.4; O2SAT 98
[2025-01-03 07:27] LABS: PLATELET COUNT (AUTO) 264 K/uL (150-450); RED BLOOD CELL COUNT(AUTO) 4.63 MIL/uL (4.5-6.0); RED CELL DISTRIBUTION WIDTH 14.8 % (11.5-15.0); WHITE BLOOD COUNT (AUTO) 12.2 K/uL (4.3-11.0)
[2025-01-03 07:30] VITALS: BP 155/97; TEMP 97.3; O2SAT 99
[2025-01-03 07:58] LABS: ASPARTATE AMINOTRANSFERASE 33.0 U/L (15-37); CALCIUM, SERUM 9.2 mg/dL (8.5-10.1); CREATININE 1.4 mg/dL (0.6-1.3); PHOSPHORUS 4.0 mg/dL (2.5-4.9); SODIUM SERUM 138.0 mmol/L (136-145); TOTAL PROTEIN, SERUM 7.7 g/dL (6.4-8.2); UREA NITROGEN, BLOOD 34.0 mg/dL (7-18)
[2025-01-03] MEDS: MEROPENEM 1 G in IV NS 0.9% 100 ML IV SCH (13:36)
[2025-01-03 15:48] VITALS: BP 109/66; TEMP 97.5; O2SAT 99
[2025-01-03 20:00] VITALS: BP 119/72; TEMP 97.7; O2SAT 96
[2025-01-03 20:37] VITALS: BP 119/72; TEMP 97.7; O2SAT 96
[2025-01-04 07:00] VITALS: BP 147/82; TEMP 97.9; O2SAT 99
[2025-01-04 07:48] LABS: PLATELET COUNT (AUTO) 238 K/uL (150-450); RED BLOOD CELL COUNT(AUTO) 4.22 MIL/uL (4.5-6.0); RED CELL DISTRIBUTION WIDTH 14.9 % (11.5-15.0); WHITE BLOOD COUNT (AUTO) 11.6 K/uL (4.3-11.0)
[2025-01-04] MEDS: GLUCERNA SHAKE 237 ML CAN PO SCH (08:20)
[2025-01-04 09:11] LABS: ASPARTATE AMINOTRANSFERASE 35.0 U/L (15-37); CALCIUM, SERUM 8.8 mg/dL (8.5-10.1); CREATININE 1.5 mg/dL (0.6-1.3); PHOSPHORUS 3.7 mg/dL (2.5-4.9); TOTAL PROTEIN, SERUM 7.3 g/dL (6.4-8.2); UREA NITROGEN, BLOOD 41.0 mg/dL (7-18)
[2025-01-04 09:23] LABS: SODIUM SERUM 138.0 mmol/L (136-145)
[2025-01-04 16:00] VITALS: BP 130/77; TEMP 97.5; O2SAT 98
[2025-01-04 20:00] VITALS: BP 130/74; TEMP 97.5; O2SAT 97
[2025-01-05 08:00] VITALS: BP 138/93; TEMP 97.9; O2SAT 98
[2025-01-05 08:05] VITALS: BP 138/98; TEMP 97.9; O2SAT 0; O2SAT 99
[2025-01-05 10:45] LABS: PLATELET COUNT (AUTO) 218 K/uL (150-450); RED BLOOD CELL COUNT(AUTO) 4.58 MIL/uL (4.5-6.0); RED CELL DISTRIBUTION WIDTH 14.9 % (11.5-15.0); WHITE BLOOD COUNT (AUTO) 11.1 K/uL (4.3-11.0)
[2025-01-05] MEDS: NA PHOS,M-B/NA PHOS,DI-BA 1 EA ENEMA RC PRN (11:05)
[2025-01-05 11:49] LABS: CALCIUM, SERUM 9.5 mg/dL (8.5-10.1); CREATININE 1.6 mg/dL (0.6-1.3); PHOSPHORUS 3.4 mg/dL (2.5-4.9); SODIUM SERUM 140.0 mmol/L (136-145); UREA NITROGEN, BLOOD 36.0 mg/dL (7-18)
[2025-01-05 12:18] LABS: ASPARTATE AMINOTRANSFERASE 37.0 U/L (15-37); TOTAL PROTEIN, SERUM 7.4 g/dL (6.4-8.2)
[2025-01-05] MEDS ORDERED: PROPOFOL 20 ML IV ONE ×2 (14:02→14:03)
[2025-01-05 16:30] VITALS: BP 136/83; TEMP 97.3; O2SAT 97
[2025-01-05 20:00] VITALS: BP 144/82; TEMP 98.1; O2SAT 97
[2025-01-06 08:00] VITALS: BP 155/112; TEMP 97.6; O2SAT 97
[2025-01-06 11:36] LABS: PLATELET COUNT (AUTO) 215 K/uL (150-450); RED BLOOD CELL COUNT(AUTO) 4.73 MIL/uL (4.5-6.0); RED CELL DISTRIBUTION WIDTH 14.7 % (11.5-15.0); WHITE BLOOD COUNT (AUTO) 10.6 K/uL (4.3-11.0)
[2025-01-06 12:02] LABS: ASPARTATE AMINOTRANSFERASE 30.0 U/L (15-37); CALCIUM, SERUM 8.8 mg/dL (8.5-10.1); CREATININE 1.4 mg/dL (0.6-1.3); PHOSPHORUS 3.0 mg/dL (2.5-4.9); SODIUM SERUM 132.0 mmol/L (136-145); TOTAL PROTEIN, SERUM 7.3 g/dL (6.4-8.2); UREA NITROGEN, BLOOD 28.0 mg/dL (7-18)
[2025-01-06 16:00] VITALS: BP 148/92; TEMP 98.1; O2SAT 97
[2025-01-06] MEDS: ACETAMINOPHEN 325 MG TABLET PO PRN (17:30)
[2025-01-06 20:00] VITALS: BP 137/89; TEMP 98.2; O2SAT 98
[2025-01-07 07:00] VITALS: BP 148/93; TEMP 98.2; O2SAT 99
[2025-01-07 16:00] VITALS: BP 143/84; TEMP 98.4; O2SAT 98
[2025-01-07 16:30] LABS: PLATELET COUNT (AUTO) 208 K/uL (150-450); RED BLOOD CELL COUNT(AUTO) 4.84 MIL/uL (4.5-6.0); RED CELL DISTRIBUTION WIDTH 15.2 % (11.5-15.0); WHITE BLOOD COUNT (AUTO) 15.8 K/uL (4.3-11.0)
[2025-01-07 17:11] LABS: CALCIUM, SERUM 8.9 mg/dL (8.5-10.1); CREATININE 1.3 mg/dL (0.6-1.3); PHOSPHORUS 2.4 mg/dL (2.5-4.9); SODIUM SERUM 135.0 mmol/L (136-145); UREA NITROGEN, BLOOD 20.0 mg/dL (7-18)
[2025-01-07 20:00] VITALS: BP 142/80; TEMP 98.1; O2SAT 97; O2SAT 98
[2025-01-08 06:49] LABS: PLATELET COUNT (AUTO) 231 K/uL (150-450); RED BLOOD CELL COUNT(AUTO) 4.65 MIL/uL (4.5-6.0); RED CELL DISTRIBUTION WIDTH 14.6 % (11.5-15.0); WHITE BLOOD COUNT (AUTO) 15.3 K/uL (4.3-11.0)
[2025-01-08 07:00] VITALS: BP 144/87; TEMP 97.2; O2SAT 98
[2025-01-08 07:40] LABS: CALCIUM, SERUM 8.9 mg/dL (8.5-10.1); CREATININE 1.3 mg/dL (0.6-1.3); PHOSPHORUS 2.7 mg/dL (2.5-4.9); SODIUM SERUM 139.0 mmol/L (136-145); UREA NITROGEN, BLOOD 15.0 mg/dL (7-18)
[2025-01-08 16:00] VITALS: BP 141/86; TEMP 97.7; O2SAT 98
[2025-01-08 20:00] VITALS: BP 127/74; TEMP 98.1; O2SAT 97
[2025-01-09 08:47] VITALS: BP 147/73; TEMP 98.1; O2SAT 98
[2025-01-09] MEDS ORDERED: LORAZEPAM 1 MG TABLET PO PRN (10:00)
[2025-01-09 11:45] LABS: PLATELET COUNT (AUTO) 197 K/uL (150-450); RED BLOOD CELL COUNT(AUTO) 4.73 MIL/uL (4.5-6.0); RED CELL DISTRIBUTION WIDTH 14.8 % (11.5-15.0); WHITE BLOOD COUNT (AUTO) 12.1 K/uL (4.3-11.0)
[2025-01-09 11:51] LABS: CALCIUM, SERUM 8.6 mg/dL (8.5-10.1); CREATININE 1.4 mg/dL (0.6-1.3); SODIUM SERUM 138.0 mmol/L (136-145); UREA NITROGEN, BLOOD 12.0 mg/dL (7-18)
[2025-01-09 11:56] LABS: PHOSPHORUS 2.6 mg/dL (2.5-4.9)
[2025-01-09 16:13] VITALS: BP 158/81; TEMP 98.1; O2SAT 94
[2025-01-09 20:00] VITALS: BP 147/77; TEMP 100.4; O2SAT 99
[2025-01-09 23:16] VITALS: TEMP 98.4
[2025-01-10 08:00] VITALS: BP 144/56; TEMP 98.4; O2SAT 99
[2025-01-10 10:21] LABS: PLATELET COUNT (AUTO) 204 K/uL (150-450); RED BLOOD CELL COUNT(AUTO) 4.49 MIL/uL (4.5-6.0); RED CELL DISTRIBUTION WIDTH 14.6 % (11.5-15.0); WHITE BLOOD COUNT (AUTO) 20.4 K/uL (4.3-11.0)
[2025-01-10 10:39] LABS: CALCIUM, SERUM 8.4 mg/dL (8.5-10.1); CREATININE 1.4 mg/dL (0.6-1.3); SODIUM SERUM 134.0 mmol/L (136-145); UREA NITROGEN, BLOOD 11.0 mg/dL (7-18)
[2025-01-10 10:53] LABS: PHOSPHORUS 2.2 mg/dL (2.5-4.9)
[2025-01-10] MEDS ORDERED: IOHEXOL-300 100 ML VIAL IV ONE (12:10)
[2025-01-10] MEDS ORDERED: CT SWABBABLE VALVE TRANS SET 1 EA INFUS.SET MC ONE (12:11)
[2025-01-10 16:00] VITALS: BP 146/74; TEMP 99.1; O2SAT 98
[2025-01-10] MEDS: MAGNESIUM OXIDE 400 MG TABLET PO ONE (17:59)
[2025-01-10] MEDS: K PHOS NEUTRAL 250 MG TABLET PO ONE (17:59)
[2025-01-10 20:00] VITALS: BP 130/73; TEMP 98.8; O2SAT 96
[2025-01-10 22:16] VITALS: BP 136/77
[2025-01-11 07:52] LABS: CALCIUM, SERUM 8.3 mg/dL (8.5-10.1); CREATININE 1.4 mg/dL (0.6-1.3); PHOSPHORUS 2.7 mg/dL (2.5-4.9); SODIUM SERUM 139.0 mmol/L (136-145); UREA NITROGEN, BLOOD 10.0 mg/dL (7-18)
[2025-01-11 08:00] VITALS: BP 158/86; TEMP 97.8; O2SAT 96
[2025-01-11 08:12] LABS: PLATELET COUNT (AUTO) 211 K/uL (150-450); RED BLOOD CELL COUNT(AUTO) 4.33 MIL/uL (4.5-6.0); RED CELL DISTRIBUTION WIDTH 15.0 % (11.5-15.0); WHITE BLOOD COUNT (AUTO) 14.3 K/uL (4.3-11.0)
[2025-01-11] MEDS: MAGNESIUM OXIDE 400 MG TABLET PO ONE (11:22)
[2025-01-11 16:00] VITALS: BP 147/74; TEMP 97.9; O2SAT 98
[2025-01-11] MEDS: PEG 3350/NA SULF,BICARB,CL/KCL 4,000 ML BOTTLE PO ONE (17:48)
[2025-01-11 20:00] VITALS: BP 126/66; TEMP 98.1; O2SAT 96
[2025-01-11] MEDS ORDERED: DOSING PER PHARMACY-VANCOMYCIN IV XX PRN (22:00)
[2025-01-11] MEDS ORDERED: VANCOMYCIN 1 GM /D5W 250 ML PB IV ONE (22:05)
[2025-01-11] MEDS: VANCOMYCIN 1 GM in IV D5W 250ml IV ONE (22:07)
[2025-01-12 06:59] LABS: CALCIUM, SERUM 8.4 mg/dL (8.5-10.1); CREATININE 1.4 mg/dL (0.6-1.3); PHOSPHORUS 2.5 mg/dL (2.5-4.9); SODIUM SERUM 139.0 mmol/L (136-145); UREA NITROGEN, BLOOD 9.0 mg/dL (7-18)
[2025-01-12 07:25] LABS: PLATELET COUNT (AUTO) 239 K/uL (150-450); RED BLOOD CELL COUNT(AUTO) 4.46 MIL/uL (4.5-6.0); RED CELL DISTRIBUTION WIDTH 14.5 % (11.5-15.0); WHITE BLOOD COUNT (AUTO) 11.8 K/uL (4.3-11.0)
[2025-01-12 07:30] VITALS: BP 120/97; TEMP 98.1; O2SAT 97
[2025-01-12] MEDS: VANCOMYCIN 750 MG in IV D5W 250 ML IV SCH (09:12)
[2025-01-12] MEDS: POTASSIUM CHLORIDE 20 MEQ POWDER PACKET PO SCH (10:41)
[2025-01-12] MEDS: PEG 3350/NA SULF,BICARB,CL/KCL 4,000 ML BOTTLE PO ONE (14:17)
[2025-01-12 16:30] VITALS: BP 157/75; TEMP 97.2; O2SAT 98
[2025-01-12 20:00] VITALS: BP 153/97; TEMP 98.1; O2SAT 98
[2025-01-13 07:30] VITALS: BP 143/74; TEMP 98.6; O2SAT 98
[2025-01-13] MEDS: NA PHOS,M-B/NA PHOS,DI-BA 1 EA ENEMA RC ONE (11:51)
[2025-01-13] MEDS ORDERED: MIDAZOLAM HCL 2 MG/2ML VIAL ONE (14:14)
[2025-01-13] MEDS ORDERED: PROPOFOL 20 ML IV ONE (14:32)
[2025-01-13] MEDS ORDERED: FLUMAZENIL 0.5 MG VIAL ONE (15:05)
[2025-01-13] MEDS: GLUCERNA SHAKE 237 ML CAN PO SCH (16:09)
[2025-01-13 20:00] VITALS: BP 131/77; TEMP 98.4; O2SAT 98
[2025-01-14 08:00] VITALS: BP 164/91; TEMP 98.2; O2SAT 97
[2025-01-14 08:40] VITALS: BP 164/91
== END 2025-01-14 14:25 | DRG 139 ==
LOC: ER 12:05 → MED 16:17
PROVIDERS: ADMIT Internal Medicine
PROC: 0DJD8ZZ Inspection of Lower Intestinal Tract, Via Natural or Artificial Opening Endoscopic (ICD-10-PCS; principal; 2025-01-05 14:15)
PROC: 0DJD8ZZ Inspection of Lower Intestinal Tract, Via Natural or Artificial Opening Endoscopic (ICD-10-PCS; 2025-01-13)
DX: J15.9 Unspecified bacterial pneumonia (principal); E87.20 Acidosis, unspecified; L97.319 Non-pressure chronic ulcer of right ankle with unspecified severity; N13.6 Pyonephrosis; E11.22 Type 2 diabetes mellitus with diabetic chronic kidney disease; E88.09 Other disorders of plasma-protein metabolism, not elsewhere classified; L97.419 Non-pressure chronic ulcer of right heel and midfoot with unspecified severity; N32.1 Vesicointestinal fistula; E11.42 Type 2 diabetes mellitus with diabetic polyneuropathy; E11.621 Type 2 diabetes mellitus with foot ulcer; N45.1 Epididymitis; E86.0 Dehydration; N50.89 Other specified disorders of the male genital organs; N18.32 Chronic kidney disease, stage 3b; Z16.12 Extended spectrum beta lactamase (ESBL) resistance; L97.329 Non-pressure chronic ulcer of left ankle with unspecified severity; K63.89 Other specified diseases of intestine; K57.30 Diverticulosis of large intestine without perforation or abscess without bleeding; E78.5 Hyperlipidemia, unspecified; I12.9 Hypertensive chronic kidney disease with stage 1 through stage 4 chronic kidney disease, or unspecified chronic kidney disease; N18.9 Chronic kidney disease, unspecified; Z89.411 Acquired absence of right great toe; N40.0 Benign prostatic hyperplasia without lower urinary tract symptoms; Z79.4 Long term (current) use of insulin; Z79.02 Long term (current) use of antithrombotics/antiplatelets; Z79.82 Long term (current) use of aspirin; Z79.899 Other long term (current) drug therapy; Z53.20 Procedure and treatment not carried out because of patient's decision for unspecified reasons; Z86.73 Personal history of transient ischemic attack (TIA), and cerebral infarction without residual deficits; B96.20 Unspecified Escherichia coli [E. coli] as the cause of diseases classified elsewhere; Y95 Nosocomial condition; N20.0 Calculus of kidney; D64.9 Anemia, unspecified; M89.8X9 Other specified disorders of bone, unspecified site; F41.9 Anxiety disorder, unspecified; K80.20 Calculus of gallbladder without cholecystitis without obstruction; B96.89 Other specified bacterial agents as the cause of diseases classified elsewhere; K62.9 Disease of anus and rectum, unspecified; N32.9 Bladder disorder, unspecified; K63.9 Disease of intestine, unspecified
CPT/HCPCS: 36415; 71045-TC; 74018; 74178; 76770-TC; 76870-TC; 80048-TC; 80053-TC; 81001; 82550-TC; 82570-TC; 82947-TC; 82962-TC; 83735-TC; 83970; 84100-TC; 84155; 84165; 84300-TC; 85025-TC; 85610-TC; 85730-TC; 86850-TC; 87040-TC; 87081-TC; 87086-TC; 87186-TC; 97110-TC; 97530-TC; A4223; A6213; A6403; G0378; J0696; J1815; J1885; J2185; J2250; J2704; J3370; J3371; J3490; J7030; J7040; J7050; J7060; Q9963; Q9967